=== PATIENT | female | born 1935 | race Caucasian/White ===

== ENCOUNTER 2022-09-05 19:31 | Inpatient (IN) | payer MEDICARE, OTHER ==
[2022-09-05] MEDS ORDERED: Sodium Chloride 0.9% 10 ML Syringe FLUSH PRN (20:10)
[2022-09-05 20:17] LABS: HEMATOCRIT 39.3 % (34.2-48.2); MEAN CORPUSCULAR HEMOGLOBIN 28.2 pg (23.9-33.9); MEAN CORPUSCULAR HGB CONC 33.2 g/dL (31.9-34.8); MEAN CORPUSCULAR VOLUME 85.2 fL (76.7-100.5); RED BLOOD CELL COUNT 4.62 x10(6)uL (3.60-5.20); RED CELL DISTRIBUTION WIDTH 14.9 % (12.3-16.5); WHITE BLOOD CELL COUNT,WBC 11.7 x10-3/uL (3.0-10.3)
[2022-09-05] MEDS: Sodium Chloride 0.9% 1,000 ML IV SCH (20:20)
[2022-09-05 20:25] LABS: A/G RATIO 0.9; ALANINE AMINOTRANSFERASE,ALT 28 U/L (12-36); ALBUMIN 3.5 g/dL (2.9-4.5); ALKALINE PHOSPHATASE 102 IU/L (56-112); ASPARTATE AMNIOTRANSFERASE,AST 33 IU/L (5-25); BILIRUBIN TOTAL 0.3 mg/dL (0.1-1.3); BLOOD UREA NITROGEN,BUN 18 mg/dL (7-18); CARBON DIOXIDE,CO2 28 mmol/L (21-32); CHLORIDE,CL 97 mmol/L (100-110); ESTIMATED GFR 54 mL/min (>60); GLUCOSE RANDOM 100 mg/dL (80-116); POTASSIUM,K 4.5 mmol/L (3.5-5.3); PROTEIN TOTAL,TP 7.3 g/dL (6.0-8.0); SODIUM,NA 133 mmol/L (135-145)
[2022-09-05 21:23] LABS: BILIRUBIN,URINE NEGATIVE (NEGATIVE); GLUCOSE,URINE NORMAL (NORMAL); KETONES,URINE NEGATIVE (NEGATIVE); LEUKOCYTE ESTERASE,URINE NEGATIVE (NEGATIVE); NITRITE,URINE NEGATIVE (NEGATIVE); OCCULT BLOOD,URINE NEGATIVE (NEGATIVE); PROTEIN,URINE NEGATIVE (NEGATIVE); UROBILINOGEN,URINE NORMAL (NEGATIVE)
[2022-09-05 21:25] LABS: APPEARANCE,URINE CLEAR (CLEAR); BACTERIA,URINE RARE (NS); COLOR,URINE YELLOW (YELLOW); RBC,URINE 0-5 (0-5); SQUAMOUS EPITHELIAL CELLS,UR OCCASIONAL (NS,R,O); WBC,URINE 0-5 (0-5)
[2022-09-05] MEDS ORDERED: Ondansetron 4 MG Tab.DIS PO PRN (23:52)
[2022-09-06] MEDS ORDERED: Diphtheria/Tetanus Toxoids,Adult (Td) 0.5 ML SDV IM ONE
[2022-09-06] MEDS: Sodium Chloride 0.9% 1,000 ML IV SCH (00:40)
[2022-09-06] MEDS: Acetaminophen 325 MG Tab PO PRN ×3 (03:25→15:09)
[2022-09-06] MEDS ORDERED: Non-Formulary Medication 1 Each (Melatonin [Melatonin] 5 MG Tablet) PO SCH (21:00)
[2022-09-06] MEDS: EYE EYEBOTH SCH (22:12)
[2022-09-06] MEDS: COMBIGAN EYEBOTH SCH (22:12)
[2022-09-06] MEDS: Melatonin 3 MG Tab PO SCH (22:13)
[2022-09-06] MEDS: atorvaSTATin 40 MG Tab PO SCH (22:14)
[2022-09-07] MEDS: Acetaminophen 325 MG Tab PO PRN (05:17)
[2022-09-07 06:43] LABS: BASOPHILS ABSOLUTE AUTO 0.1 x10-3/uL (0.0-0.1); BASOPHILS PERCENT AUTO 1.1 % (0.2-1.5); EOSINOPHILS ABSOLUTE AUTO 0.4 x10-3/uL (0.0-0.8); EOSINOPHILS PERCENT AUTO 3.5 % (0.6-8.1); HEMATOCRIT 32.1 % (34.2-48.2); HEMOGLOBIN 10.6 g/dL (11.4-15.5); LYMPHOCYTES ABSOLUTE AUTO 0.8 x10-3/uL (1.0-4.4); LYMPHOCYTES PERCENT AUTO 8.1 % (18.4-52.1); MEAN CORPUSCULAR HGB CONC 33.2 g/dL (31.9-34.8); MEAN CORPUSCULAR VOLUME 84.3 fL (76.7-100.5); MEAN PLATELET VOLUME 7.1 fL (7.1-12.4); MONOCYTES ABSOLUTE AUTO 0.6 x10-3/uL (0.3-1.0); MONOCYTES PERCENT AUTO 5.6 % (4.4-15.7); NEUTROPHILS ABSOLUTE AUTO 8.5 x10-3/uL (1.5-6.3); NEUTROPHILS PERCENT AUTO 81.7 % (30.8-76.2); PLATELET COUNT,PLT 526 x10(3)uL (151-488); RED CELL DISTRIBUTION WIDTH 14.6 % (12.3-16.5); WHITE BLOOD CELL COUNT,WBC 10.4 x10-3/uL (3.0-10.3)
[2022-09-07 06:48] LABS: BLOOD UREA NITROGEN,BUN 14 mg/dL (7-18); BUN/CREATININE RATIO 17.5 (9-20); CALCIUM 8.8 mg/dL (8.6-10.2); CARBON DIOXIDE,CO2 27 mmol/L (21-32); CHLORIDE,CL 100 mmol/L (100-110); CREATININE 0.8 mg/dL (0.55-1.02); EST CRCL DRUG DOSING (CG) 42.53 mL/min; ESTIMATED GFR 70 mL/min (>60); GLUCOSE RANDOM 105 mg/dL (80-116); POTASSIUM,K 4.5 mmol/L (3.5-5.3); SODIUM,NA 133 mmol/L (135-145)
[2022-09-07] MEDS: EYE EYEBOTH SCH ×2 (08:34→22:34)
[2022-09-07] MEDS: COMBIGAN EYEBOTH SCH ×2 (08:34→22:34)
[2022-09-07] MEDS: Metoprolol Tartrate 25 MG Tab PO SCH ×2 (10:05→22:35)
[2022-09-07] MEDS: atorvaSTATin 40 MG Tab PO SCH (22:34)
[2022-09-07] MEDS: Melatonin 3 MG Tab PO SCH (22:35)
[2022-09-08] MEDS: EYE EYEBOTH SCH (08:05)
[2022-09-08] MEDS: Metoprolol Tartrate 25 MG Tab PO SCH (08:05)
[2022-09-08] MEDS: COMBIGAN EYEBOTH SCH (08:05)
[2022-09-08] MEDS: Acetaminophen 325 MG Tab PO PRN (11:15)
== END 2022-09-08 15:30 | disposition home or self-care (01) | DRG 90 ==
LOC: FB.ED 19:31 → FB.MS 23:53
PROVIDERS: ADMIT Family Medicine; ATTEND Student in an Organized Health Care Education/Training Program
DX: S06.0X0A Concussion without loss of consciousness, initial encounter (principal); S70.02XA Contusion of left hip, initial encounter; S70.12XA Contusion of left thigh, initial encounter; F03.90 Unspecified dementia, unspecified severity, without behavioral disturbance, psychotic disturbance, mood disturbance, and anxiety; H40.9 Unspecified glaucoma; W19.XXXA Unspecified fall, initial encounter; Z51.5 Encounter for palliative care; E78.2 Mixed hyperlipidemia; M85.80 Other specified disorders of bone density and structure, unspecified site; I10 Essential (primary) hypertension; I25.10 Atherosclerotic heart disease of native coronary artery without angina pectoris; S01.01XA Laceration without foreign body of scalp, initial encounter; S93.491A Sprain of other ligament of right ankle, initial encounter; W18.30XA Fall on same level, unspecified, initial encounter; Z79.82 Long term (current) use of aspirin; Z79.899 Other long term (current) drug therapy; I25.2 Old myocardial infarction; Y92.128 Other place in nursing home as the place of occurrence of the external cause
CPT/HCPCS: 12002; 36415; 70450; 71045; 72192; 73502-LT; 73610-RT; 80048; 80053; 81001; 84484; 85025; 85027; 90471; 90714; 93005; 93010; 96360; 96361; 99223; 99233; 99238; 99285; 99285-25; A9270-GY; J7030

== ENCOUNTER 2022-09-11 23:32 | Emergency (ER) | payer MEDICARE, OTHER ==
[2022-09-12] MEDS ORDERED: Ketorolac 30 MG/ML SDV IM ONE (00:51)
[2022-09-12] MEDS ORDERED: hydrOXYzine HCl 50 MG/ML SDV IM ONE (00:51)
== END 2022-09-12 01:13 ==
LOC: FB.ED 23:32
DX: M25.562 Pain in left knee (principal); R51.9 Headache, unspecified; I25.10 Atherosclerotic heart disease of native coronary artery without angina pectoris; I10 Essential (primary) hypertension; I25.2 Old myocardial infarction; E78.00 Pure hypercholesterolemia, unspecified; M19.90 Unspecified osteoarthritis, unspecified site; F03.90 Unspecified dementia, unspecified severity, without behavioral disturbance, psychotic disturbance, mood disturbance, and anxiety; Z79.82 Long term (current) use of aspirin; Z79.899 Other long term (current) drug therapy
CPT/HCPCS: 70450; 73562-LT; 96372; 99285; J1885; J3410